=== PATIENT | female | born 1945 | race Caucasian/White ===

== ENCOUNTER → 2020-03-08 15:04 | Outpatient (CLI) | payer MEDICARE, SELFPAY ==
[2020-03-09 10:51] LABS: COVID19 Sendout Not Detected (Not Detect)
== END ==
PROVIDERS: Visit Provider Registered Nurse
DX: Z01.812 Encounter for preprocedural laboratory examination (principal)
CPT/HCPCS: 87635

== ENCOUNTER 2020-03-12 09:55 | Observation (INO) | payer MEDICARE, SELFPAY ==
[2020-03-10 09:59] VITALS: BMI 26.1
[2020-03-11] VITALS (15 sets, daily range): BP systolic 76–134; BP diastolic 35–73; PULSE 65–75; RESP 12–19; TEMP 36.1–37; O2SAT 95–99; BMI 25.8
--- NOTE | 2020-03-11 | DI.RAD.S_ITS ---
PROCEDURE: XR PELVIS 1-2V INDICATIONS: RT TOTAL HIP TECHNIQUE: 1 view of the lower pelvis acquired. COMPARISON: None. FINDINGS: Bones: Patient is status post right hip arthroplasty, with hardware components in expected positions. The hip joint appears congruent. The visualized bony structures appear intact. Soft tissues: Overlying postoperative changes are noted. No suspicious soft tissue densities. IMPRESSION: Right total hip arthroplasty. Normal alignment established. Dictated by: Arpit Ashraf M.D. on 03/11/2020 at 14:35 Approved by: Arpit Ashraf M.D. on 03/11/2020 at 14:43
[2020-03-11] MEDS: LACTATED RINGERS 1,000 ML 42 ML IV ×2 (10:07→13:04)
[2020-03-11] MEDS: CEFAZOLIN 1 GM/50 ML FROZ.PIGGY IV (11:50)
[2020-03-11] MEDS: TRANEXAMIC ACID 1,000 MG VIAL 1000 MG IV ×2 (12:15→13:00)
--- NOTE | 2020-03-11 12:23 | SUR.OPER ---
Lateral on padded OR bed. Gel axillary roll. Arms secured on padded armboard with pillow supporting top arm. Padded hip positioner braces x4 - anterior and posterior chest and pelvis. Additional gel pad used anterior pelvis. Gel pad under bottom leg from knee to foot and secured with tape over sheet.
[2020-03-11] MEDS: ROPIVACAINE 0.5% PF 5 MG/ML 20ML VIAL 60 ML INJ (12:27)
[2020-03-11] MEDS: KETOROLAC 30 MG/ML VIAL INJ (12:31)
[2020-03-11] MEDS: MORPHINE 4 MG/ML INJ INJ (12:32)
--- NOTE | 2020-03-11 13:39 | P.OP_ITS ---
Operative Date/Time/Diagnoses Date of procedure: 03/11/20 Time of procedure: 13:39 Pre-op diagnosis: Right hip degenerative joint disease Post-op diagnosis: same Procedure & Clinicians Procedure: Right total hip arthroplasty (CPT code 82547 with clerical administrative assistant) Same procedure as scheduled: Yes Indications: Patient is an 74-year-old female with severe right hip DJD. The patient has pain with activities and at rest, limited ambulation and activity tolerance, difficulties with ADLs, and failure of conservative treatment. We have discussed the nature of condition, treatment options, risks and benefits, and patient elects to proceed with total hip arthroplasty and gives informed consent. Surgeon: Juan M Granger Beer Coil Cleaner: Roro Peterson Anesthesia Type: General and Spinal Operative Notes Closure Type: primary Specimen(s): none sent Prosthetic devices, grafts, tissues, transplants, or devices: Acetabulum: Kat and Nephew R3 acetabular component size 50 mm Femoral component: Kat [employer] Nephew Anthology stem size 8 with standard offset Femoral head: 32 mm + 0 cobalt chrome Estimated Blood Loss (mL): 200 Blood products transfused: none Procedure in detail: After satisfaction induction of anesthetic, and administration of IV antibiotics, the patient was positioned in the lateral decubitus position with all bony prominences well padded and pelvic position secured using a hip conservation engineer positioning device. Right hip and lower extremity prepped and draped in the usual sterile fashion, 1st dose of intravenous tranexamic acid was administered, then a longitudinal incision was created centered over the greater trochanter and carried sharply through the skin and subcutaneous tissues down to the fascia jerri which was divided longitudinally and retracted with a Charnley retractor. External rotators visualize, cut, tagged, and retracted posteriorly, then the capsule was cut in a T-type fashion with the corners tagged and retracted. Hip was dislocated and femoral neck cut made according to preoperative templating. Acetabular retractors then placed, and the acetabular labrum and osteophytes were excised. The acetabulum was then sequentially reamed to 49 mm with an excellent circumferential ream and fit with the trial. The trial component was removed and a permanent size 50 mm Kat and Nephew R3 acetabular component was selected, positioned, and impacted with satisfactory position and fixation achieved. Permanent liner was then inserted with the elevated lip directed posteriorly. Soft tissue then removed off the lateral femoral neck in the lateral neck was entered using a box osteotome. T- handled reamers placed down the canal followed by sequential broaching to 8 with the final broach left in place for trial reduction which demonstrated excellent leg length, range of motion, and stability characteristics with a 32 mm +0 trial ball. The trial and broach were removed, and a permanent size 8 Kat and Nephew Anthology stem was selected and inserted with excellent position and fixation achieved. Another trial reduction yielded the above characteristics so the trial ball was exchanged for a permanent 32 mm +0 cobalt chrome ball. The hip was irrigated and reduced and excellent leg length range of motion and stability characteristics were achieved and maintained. Periarticular tissues were infiltrated with ropivacaine, morphine, and Toradol. The hip was copiously irrigated, and the capsule repaired with #2 Ethibond, and the piriformis was repaired back to the greater trochanter with the same. Fascia jerri closed with interrupted #1 Ethibond sutures, and the subcutaneous tissues were closed in 2 layers of 0 Vicryl and 2 0 Vicryl. Skin was closed with brendan and sterile dressings applied. Second dose of tranexamic acid was administered intravenously, and the anesthetic was terminated. Complications: none Post-operative Condition: stable Disposition: PACU Plan for aftercare: Patient will be admitted to the acute care [place], and anticipate discharge on afternoon of surgery or postop day 1 with follow-up in office in 10-14 days. Outpatient physical therapy will be arranged and patient will continue to observe posterior hip precautions. Patient will continue use of postoperative Lovenox for 10 days postop.
--- NOTE | 2020-03-11 14:07 | SUR.PHASEI ---
Patient A/O x 4. Spinal resolving. Still unable to move LE. PP +. Drsg CDI. Will cont to monitor.
--- NOTE | 2020-03-11 14:15 | PC.NURSE ---
Admitting note Pt is A/o x4, from PACU. Denies pain, block prior to R hip surgery effective. Sensation at L3 level. PP+, weak. Unable to wiggle R foot, but slowly getting more sensation. RA, 99%, no c/o pain or nausea. Snack at bedside. Call light in reach. Update to Jamia, Per Pt request.
[2020-03-11] MEDS: WARFARIN 5 MG TABLET PO (17:17)
--- NOTE | 2020-03-11 17:36 | PT.IIE ---
Current Diagnoses Unilateral primary osteoarthritis, right hip (03/11/20) Trochanteric bursitis, right hip (03/11/20) Surgery Performed Operation Date: 03/11/20 11:45 Actual Procedures p Total Hip Arthroplasty(Right) - Juan M Granger MD Surgical History (Last Reviewed 03/11/20 @ 11:52 by Juan M Granger MD) History of hysterectomy (Acute) Hx of bilateral cataract extraction (Acute) Hx of tonsillectomy (Acute) S/P right unicompartmental knee replacement (Acute ~2016) Medical History (Last Reviewed 03/11/20 @ 11:52 by Juan M Granger MD) Asthma (Acute) Depression (Acute) DVT (deep venous thrombosis) (Acute 01/2005) Easy bruisability (Acute) Femur fracture, right (Acute 1975) Hearing impaired (Acute) Hypothyroidism (Acute) Osteoarthritis (Acute) Sciatica (Acute) Physical Therapy Inpatient Evaluation/Re-Eval M1 PT/OT-IP Prior Functional Status Start: 03/11/20 15:21 Freq: NEEDED Status: Active Protocol: Document 03/11/20 17:15 AW (Rec: 03/11/20 17:36 AW [id number]) Medical Review Prior Functional Status Medical History Reviewed Yes Diet/Fluid Consistency Regular Communication WNL Mobility and Gait Pt reports independent ambulation but does endorse occasional use of SPC. She states she used the cane <10% of the time. In recent weeks, she has been walking 1-2 miles daily. Activities of Daily Living and IADL's Independent. Social History Household Members none Living Arrangements House Number of Floors (Floors) One Floor Number of Stairs To Enter/Railing? Ramped entry to front door Home Environment Standard Height Toilet,Walk in Shower,Ramp Home Equipment Front Wheel Walker,Straight Cane,Raised Toilet Seat Without Armrests,Hand Held Shower,Leg Fairground Operator,Occupational Health Nurse Supervisor,Grab Bars In Shower Employment Status Retired Additional Social History Comment Pt's ~1 year ago. She currently lives alone. She has arranged for friends to stay with her over the next week. M2 PT-IP Current Condition Start: 03/11/20 15:21 Freq: NEEDED Status: Active Protocol: Document 03/11/20 17:15 AW (Rec: 03/11/20 17:36 AW [email or web address]) Physical Therapy Current Condition Current Condition Evaluation Date 03/11/20 Treatment Diagnosis s/p R IVANNA with posterior approach; difficulty in walking Precautions Posterior Hip Precautions No Hip Flexion > 90 degrees,No Hip Internal Rotation,No Hip Adduction Weight Bearing Status Weight Bearing Status Weight Bear as Tolerated M3 PT-IP Subjective Start: 03/11/20 15:21 Freq: NEEDED Status: Active Protocol: Document 03/11/20 17:15 AW (Rec: 03/11/20 17:36 AW [email or web address]) Subjective Physical Therapy Visit Type Type Initial Evaluation Visit Start Time 16:02 Visit Stop Time 16:40 Total Visit Minutes 38 Physical Therapy Visit Comments Patient Comments Pt willing to participate with PT Patient Goals Pt states she is going home today. Therapy Pain Assessment Pain When Pain Assessed At Rest Pain Present Pain Present Denied Pain M4 PT-IP Mobility and Gait Start: 03/11/20 15:21 Freq: NEEDED Status: Active Protocol: Document 03/11/20 17:15 AW (Rec: 03/11/20 17:36 AW [email or web address]) PT-Bed Mobility Assessment Supine to Sit Supine to Sit Contact Guard Assistance Sit to Supine Sit to Supine Maximum Assistance,1 Person Assistance Scooting Scooting to Edge of Bed Standby Assistance Scooting Up and Down in Bed Minimal Assistance PT-Transfer Assessment Sit to and From Stand Sit to and from Stand Minimal Assistance,1 Person Assistance,Use of Upper Extremities Equipment Transfer Assistive Device Gait Belt,Front Wheeled Walker Orthotic/Prosthetic Devices or Brace: No Comments Mobility Comments Pt sitting up in bed upon PT arrival, alert and ready to work with therapy. BP supine was 113/81. Pt required extra time and CGA to complete supine to sit with HOB elevated ~20 degrees. She was able to sit EOB with and without UE support. Pt then completed sit to stand with FWW min A x 1 at which point she began to complain of lightheadedness. BP in immediate standing was 145/79. She was able to complete weight shifting side to side and began to take steps forward with FWW CGA. Two feet away from the bed, she began to slump. This PT quickly assisted the pt back to sitting on the bed where she required encouragement to keep her eyes open and to attend to sitting upright. RN responded to the call light and assisted the pt back to supine. BP upon return to supine was 90/35. Pt was responsive and verbal immediately. BP was 107/63 after three minutes. She was left with RN and RT attending. Gait Assessment Comments Gait Comments Unable at this time. See mobility comments. Stair Climbing Assessment Comments Stair Climbing Comments Not assessed. No stairs at home. PT-Balance Assessment Sitting Balance and Reactions Static Sitting Balance Ability Good Dynamic Sitting Balance Ability Good M5 PT-IP Objective Assessments Start: 03/11/20 15:21 Freq: NEEDED Status: Active Protocol: Document 03/11/20 17:15 AW (Rec: 03/11/20 17:36 AW [id number]) Orientation Orientation/Cognition Level of Alertness Lethargic Orientation Name,Day of Week,Place, Situation Language Function Ability Hard of Hearing Safety Awareness Understands Safety Issues Memory Description No Deficits Noted Comments Pt was alert and oriented at start of session. She became sleepy and dizzy during mobility but continued to respond appropriately to orientation questions. Gross Range of Motion Lower Extremity ROM Assessment Right Impaired Strength Lower Extremity Strength Assessment Right Impaired Comments Strength Comments L LE grossly 4+/5 Coordination Assessment Gross Coordination Gross Coordination WNL Sensation Assessment Sensation Gross Sensation Right LE Impaired,Left LE Impaired Light Touch Impaired Sensation Description Numbness Muscle Tone Muscle Tone WNL Yes M6 PT-IP Treatment Start: 03/11/20 15:21 Freq: NEEDED Status: Active Protocol: Document 03/11/20 17:15 AW (Rec: 03/11/20 17:36 AW [email or web address]) Physical Therapy Treatment Exercises Exercises Ankle Pumps,Gluteal Sets,Quad Sets,Heel Slides,Supine Hip Abduction Education Education Provided Precautions,Weight Bearing Status,Post-Op Packet,Safety Other Treatments Other Treatment Performed Provided education on role of PT, plan of care, weightbearing status, posterior hip precautions, and safe use of FWW M7 PT-IP Assessment and Plan Start: 03/11/20 15:21 Freq: NEEDED Status: Active Protocol: Document 03/11/20 17:15 AW (Rec: 03/11/20 17:36 AW [email or web address]) PT Summary Assessment and Plan Potential Rehabilitation Potential Excellent Status of Condition at Evaluation Evolving Summary Impairments Pain,ROM,Strength,Balance, Sensation,Bed Mobility, Transfers,Gait,Activity Tolerance Assessment Summary Melissa is an active 74 yo woman seen for PT evaluation on POD0 following R IVANNA with posterior approach. She is largely independent with ambulation but does endorse use of SPC <10% of the time prior to surgery. Evaluation was limited due to orthostatic hypotension with attempted mobility. Based on pt's prior level of function and activity , PT anticipates she will meet the functional goals of this plan of care and be safe to discharge home with supportive friends and outpatient PT once medically cleared. PT will continue to assess and refine discharge recommendation depending on progress. Goals Bed Mobility Goal Standby Assistance Transfer Goal Standby Assistance,Front Wheeled Walker Gait Goal Standby Assistance,Front Wheel Walker Gait Distance 200 Days to Meet Goals 3 Frequency of Treatment Frequency Of Treatment Twice a Day Treatment Plan Physical Therapy Treatment Plan Bed Mobility Training,Transfer Training,Gait Training, Therapeutic Exercise,Balance Retraining,Post Op Education, Discharge Planning,Hot or Cold Pack Other Recommendations and Next Treatment assess transfers and gait with Focus FWW; review ther ex; reinforce hip precautions Recommendations To Nursing Amount of Assist Needed 1 Person Assist Discharge Recommendations PT Discharge Recommendations Home with Assistance, Outpatient PT Other Discharge Recommendations depending on progress Transportation Needs at Discharge Private Vehicle
[2020-03-11] MEDS: LACTATED RINGERS 1,000 ML 125 ML IV (19:09)
[2020-03-11] MEDS: CEFAZOLIN 2 GM/100 ML FROZ.PIGGY IV (19:40)
[2020-03-11] MEDS: SODIUM CHLORIDE 0.9% 1,000 ML 1000 ML IV (21:55)
[2020-03-11] MEDS: DOCUSATE 100 MG CAPSULE PO (22:31)
[2020-03-11] MEDS: ACETAMINOPHEN 325 MG TABLET 650 MG PO (22:31)
[2020-03-12 00:26] VITALS: BP 101/57; PULSE 80; RESP 19; TEMP 36.2; O2SAT 99
--- NOTE | 2020-03-12 02:08 | PC.NURSE ---
Addendum entered by Ladonna Aguiar R.N. 03/12/20 06:43: 0400 Pt able to void on bedpan 100 ml. Continues to deny need for pain meds. Drsg R hip CDI. CMS +. Original Note: 0000 Pt awake and cooperative. Denies nausea and pain. States she only has mild pain when lifting RLE off of bed. Good CMS.R hip drsg CDI. Pt states only nausea was with standing and BP was low. Pt states that at baseline she is incontinent and always wears briefs. Encouraged pt to call with need for brief change. Pt agreeable. Pt able to C,DB with improvement in O2 sats. Encouraged ankle waving and calf pumping. Pt states that she read her book on Total Hip Replacement and she has been doing ankle waves and calf pumping. SCDs in place. SBP improved to to 101/57. Pt encouraged to call for any needs or questions. Pt agreeable.
[2020-03-12] MEDS: CEFAZOLIN 2 GM/100 ML FROZ.PIGGY IV (03:42)
[2020-03-12] MEDS: LACTATED RINGERS 1,000 ML 125 ML IV (03:48)
[2020-03-12 04:00] VITALS: BP 100/55; PULSE 73; RESP 18; TEMP 36.2; O2SAT 98
[2020-03-12 05:04] LABS: Hematocrit 33.2 % (36-46); Hemoglobin 11.2 g/dL (12.0-16.0)
[2020-03-12 07:49] VITALS: BP 109/58; PULSE 67; RESP 16; TEMP 36.4; O2SAT 97
--- NOTE | 2020-03-12 08:29 | CM.DANOTE ---
Addendum entered by Domonique Mattson LPN 03/12/20 08:59: Clarification: RTHA/Posterior approach: confirmed. Pt is x one year: will update ACG so that EMR can be updated. Addendum entered by Domonique Mattson LPN 03/12/20 08:49: DCP: assessment: case received, EMR reviewed. DC to home order noted, in place since pt left PACU yesterday afternoon. Checked in with PT Sudheer who will be seeing pt for her initial PT eval today. Met now with pt and introduced self and role. Pt is a 74 year old female who admitted yesterday for a planned R IVANNA/anterior approach. Surgeon: Dr. Granger Payer: Medicare and [facility] PCP: Amaury Nunez Pt confirms her home plan and has my helpful and calm friends lined up for assistance. She will have someone staying with her overnight for 2 nights. She does say she does not feel able to go home until she can get up and go to the bathroom by herself. She does reiterate that she very much hopes to be able to go home today if possible. She has not seen a rounding surgeon yet today. Pt says she had difficulty with low blood pressure yesterday and I think that is why I did not get to see PT. Original Note: Discharge Planning/Care Management Advanced directive, confirm from FAMILY Start: 03/11/20 15:13 Freq: Q24H Status: Active Protocol: Document 03/11/20 15:13 CW (Rec: 03/11/20 17:26 CW [email or web address]) Advance Directive, confirm on record Time 17:26 Person contacted patient Copy received No Copy received No Advanced directive available on record No CM Discharge Assessment Start: 03/12/20 08:27 Freq: Status: Active Protocol: Document 03/12/20 08:28 ITV (Rec: 03/12/20 08:29 ITV [id number]) Discharge Planning Assessment Advance Directives? Yes Advance Directives on File No History Provided By Medical Record Prior Living Arrangements House Household Members none Review Status In Process Pre-Anesthesia Assessment Start: 03/10/20 09:59 Freq: Status: Complete Protocol: Document 03/10/20 09:59 CAB (Rec: 03/10/20 10:37 CAB [id number]) Pre-Anesthesia Assessment Patient Information Reviewed Via Phone Assessment Assessment Completed With Patient Comment Labs done per pt-not in system -COVID screen @ [facility] 03/08/20-not detected Primary Care Provider Amaury Nunez Seen Specialist in Last 12 Months Yes Specialist Seen Orthopedist Primary Language Angolan Clay Shop Supervisor Required No Height 165.1 cm Weight 71.214 kg Body Mass Index (BMI) 26.1 Hearing Ability Hard of Hearing,Use of Hearing Aid Visual Assist Glasses Dentition Type Teeth, Natural Present,Dental Implants Barriers to Learning None Other Aids No Hx Anesthesia Reactions No Hx Family Anesthesia Reaction No Hx Malignant Hyperthermia No Hx Blood Transfusions No Anesthesia Review Requested No Business Office Technician No alcohol intake current alcohol intake frequency 0-2 drinks per day Smoking Status Former smoker how long ago did patient quit smoking Quit smoking in college x 1 year Substance Use Type other Comment CBD oil to help with sleep Pain Present Pain Reported Musculoskeletal Symptoms Abnormal Gait,Difficulty Walking,Joint Pain,Radiating Pain into Limb History of Falling (Recent or History of No ) Patient is completely paralyzed or No completely immobile Prosthesis or Orthotic Device Cane Mental Status Oriented to own ability Is patient on oxygen? No Does patient have CASILLAS/SOB No Hx Sleep Apnea No Currently Taking a Beta Robb No Can You Climb a Flight of Stairs Without Yes SOB Hx Chest Pain No Hx SOB No Hx Syncope or Dizziness No Anti-Coagulant Therapy Yes: Warfarin-Advised to hold 03/06 PCP Has a Transportation Aid No Cardiac Testing No Hx Pacemaker/ICD No Pacemaker Rep Required? No Cardiac Clearance Received Not Applicable Diet Type At Home Regular dysphagia No Bladder Pattern Incontinent Urinary Catheter Present No Hx Urinary Self Catheterization No Diabetes No Patient No Lactating No Hx Drug Resistant Organism No Presence of External or Internal Medical Yes: Bilateral eye lens Devices Have you had any close contact with No someone diagnosed with COVID-19? Evaluation/Screening for possible COVID- Yes 19 infection completed? Marital Status - passed 03/12/19 Lives With none Prior Living Arrangements House Support System Friend(s) Does the Patient Have Assistance After Yes: Neighbors, friends will Surgery stay w/pt to assist @ DC Patient Discharge Plan Description Return Home Comment Pt plans to go home same day Feels Safe in Current Environment Yes Been Physically Hurt or Threatened By a No Person in Current Environment Do you have thoughts of harming yourself None or others? Are you currently considering suicide? No Do you have a plan to hurt yourself or No Plan others? Do You Have Any Spiritual Beliefs That No May Affect Your HC Choices? Do You Have Any Cultural Practices That No May Affect Your HC Choices? Comment [employer]ism Health Care Proxy/Next of Kin Jamia (friend) Health Care Proxy Emergency Contact Name Nelson (sister) Emergency Contact Advance Directives? Yes Advance Directives on File No Requested Patient Bring Advanced Yes Directives DOS Power of Operations Vocational Instructor Yes Power of Operations Vocational Instructor Name Nelson () Power of Operations Vocational Instructor PAC Instructions Do not shave/clip surgical site,Durable medical equipment ,Medications to take/avoid, Nasal antibiotic,No ETOH/ petroleum product on skin DOS, NPO,Post-op transportation,Pre -surgical wash,Sensory aids, Sturdy shoes/comfortable clothes
[2020-03-12] MEDS: ACETAMINOPHEN 325 MG TABLET 650 MG PO (08:35)
[2020-03-12] MEDS: SODIUM CHLORIDE 0.9% FLUSH 10 ML IV (08:36)
[2020-03-12] MEDS: DOCUSATE 100 MG CAPSULE PO (08:36)
[2020-03-12] MEDS: MONTELUKAST 10 MG TABLET PO (08:36)
--- NOTE | 2020-03-12 11:29 | PT.IPTN ---
Current Diagnoses Unilateral primary osteoarthritis, right hip (03/12/20) Trochanteric bursitis, right hip (03/12/20) Surgery Performed Operation Date: 03/11/20 11:45 Actual Procedures p Total Hip Arthroplasty(Right) - Juan M Granger MD Physical Therapy Treatment Note M2 PT-IP Current Condition Start: 03/11/20 15:21 Freq: NEEDED Status: Active Protocol: Document 03/11/20 17:15 AW (Rec: 03/11/20 17:36 AW [email or web address]) Physical Therapy Current Condition Current Condition Evaluation Date 03/11/20 Treatment Diagnosis s/p R IVANNA with posterior approach; difficulty in walking Precautions Posterior Hip Precautions No Hip Flexion > 90 degrees,No Hip Internal Rotation,No Hip Adduction Weight Bearing Status Weight Bearing Status Weight Bear as Tolerated M3 PT-IP Subjective Start: 03/11/20 15:21 Freq: NEEDED Status: Active Protocol: Document 03/12/20 09:20 HH (Rec: 03/12/20 11:29 HH [email or web address]) Subjective Physical Therapy Visit Type Type Treatment Note Visit Start Time 09:20 Visit Stop Time 09:50 Total Visit Minutes 30 Number of SHOE STITCHER ODD Visits 0 Physical Therapy Visit Comments Patient Comments Im feeling a lot better today and i think im ready to go home. Therapy Pain Assessment Pain When Pain Assessed During Mobility Pain Present Pain Present Pain Reported Location Right Hip Intensity 2 Scale Used Numeric (1 - 10) Description Aching Pain Management Techniques Timing of Activity with Medications M4 PT-IP Mobility and Gait Start: 03/11/20 15:21 Freq: NEEDED Status: Active Protocol: Document 03/12/20 09:20 HH (Rec: 03/12/20 11:29 HH [email or web address]) PT-Transfer Assessment Sit to and From Stand Sit to and from Stand Standby Assistance Equipment Transfer Assistive Device Bed Rail,Front Wheeled Walker Orthotic/Prosthetic Devices or Brace: No Transfers Transfer Destination Chair Transfer Technique with FWW Transfer Ability Level of Assist Standby Assistance Comments Mobility Comments Pt was in chair after using bathroom with CONTRERAS CUADRA. BP 94/57 HR 78 (pt denied any discomfort) Pt sitting comfortably with no c/o. She agreed to mobilize with PT. She completed sit to stand from low chair by pushing off from B armrests slowly and transitioned to FWW with a staggered stance SBA. She then amb to sink counter for self care who was able to stand unsupportedly but with a anterior trunk lean. She then proceed to amb in the hallway with SBA who presents with a rotated R pelvis and extended RLE. Pt initially amb with step to pattern slowly then improved to semi step over pattern, along with improved upright posture. Educated pt to facilitate heel strike on RLE and avoild early heel rise to improve hip extension. Pt overall amb 220 ft in total with SBA and able to return to room chair after with a safe transfer by using chair armrest and staggered stance. Pt rested in chair comfortably after with BP 91/43 HR 91. Pt overall demonstrated good understanding of post op precautions and safe transfer techniques. Gait Assessment Gait Gait Assistance Required: Standby Assistance Distance (Feet) 220 Able to Maintain Weight Bearing Status Yes During Gait Assistive Devices Assistive Device Gait Belt,Front Wheeled Walker Orthotic/Prosthetic Devices or Brace: No Gait Deviations General Gait Pattern Antalgic,Decreased Stride Length,Decreased Feet Clearance,Flexed Trunk,Step-to Gait Factors Limiting Gait Function Factors Limiting Gait Function Decreased Activity Tolerance, Decreased Strength,Limited Range of Motion,Pain,Poor Balance Comments Gait Comments see mobility comments PT-Balance Assessment Sitting Balance and Reactions Static Sitting Balance Ability Normal Dynamic Sitting Balance Ability Normal Standing Balance and Reactions Static Standing Balance Ability Normal Dynamic Standing Balance Ability Good Device Used with FWW M5 PT-IP Objective Assessments Start: 03/11/20 15:21 Freq: NEEDED Status: Active Protocol: Document 03/11/20 17:15 AW (Rec: 03/11/20 17:36 AW [id number]) Orientation Orientation/Cognition Level of Alertness Lethargic Orientation Name,Day of Week,Place, Situation Language Function Ability Hard of Hearing Safety Awareness Understands Safety Issues Memory Description No Deficits Noted Comments Pt was alert and oriented at start of session. She became sleepy and dizzy during mobility but continued to respond appropriately to orientation questions. Gross Range of Motion Lower Extremity ROM Assessment Right Impaired Strength Lower Extremity Strength Assessment Right Impaired Comments Strength Comments L LE grossly 4+/5 Coordination Assessment Gross Coordination Gross Coordination WNL Sensation Assessment Sensation Gross Sensation Right LE Impaired,Left LE Impaired Light Touch Impaired Sensation Description Numbness Muscle Tone Muscle Tone WNL Yes M6 PT-IP Treatment Start: 03/11/20 15:21 Freq: NEEDED Status: Active Protocol: Document 03/11/20 17:15 AW (Rec: 03/11/20 17:36 AW [email or web address]) Physical Therapy Treatment Exercises Exercises Ankle Pumps,Gluteal Sets,Quad Sets,Heel Slides,Supine Hip Abduction Education Education Provided Precautions,Weight Bearing Status,Post-Op Packet,Safety Other Treatments Other Treatment Performed Provided education on role of PT, plan of care, weightbearing status, posterior hip precautions, and safe use of FWW M7 PT-IP Assessment and Plan Start: 03/11/20 15:21 Freq: NEEDED Status: Active Protocol: Document 03/12/20 09:20 HH (Rec: 03/12/20 11:29 HH [email or web address]) PT Summary Assessment and Plan Summary Impairments Pain,ROM,Strength,Balance, Transfers,Gait,Activity Tolerance Progress Towards Goals Safe For Discharge Assessment Summary Pt did very well today who was able to amb, transfer and perform self care with SBA and FWW. She also has good understanding of post op precautions and safe transfer techniques. Pt will have friends to stay over to assist until Sunday and will participate outpatient PT starting from next sunday. She is currently safe to d/c. Frequency of Treatment Frequency Of Treatment Discharge Recommendations To Nursing Amount of Assist Needed Standby Assistance Discharge Recommendations PT Discharge Recommendations Home with Assistance, Outpatient PT Transportation Needs at Discharge Private Vehicle
--- NOTE | 2020-03-12 11:37 | PC.NURSE ---
Addendum entered by Shakeel Damon R.N. 03/12/20 11:54: Pt left via w/c and was escorted to POV by [employer]. Pt was in no distress at time of discharge and had all belongings with her. Original Note: Pt to d/c home per MD order after PT eval/tx. Pt able to work with PT and ambulate in the hallway. Tolerated well with very minimal lightheadedness reported. Pain well controlled with tylenol scheduled. Removed PIV. Reviewed d/c packet, hip precautions, post op care, f/u care, s/s of wound infx, medication regimen, pain med regimen. Pt verbalized understanding of discharge teaching and states she has no questions at this time. Pt states her friend will be here to pick her up around 1200.
== END 2020-03-12 11:50 | disposition home or self-care (01) ==
LOC: OR 11:12 → AC 11:12
PROVIDERS: Admitting Provider Orthopaedic Surgery; Referring Provider Orthopaedic Surgery; Visit Provider Orthopaedic Surgery
PROC: 0SR90JZ Replacement of Right Hip Joint with Synthetic Substitute, Open Approach (ICD-10-PCS; CPT 27130; principal; 2020-03-11 11:45)
DX: M16.11 Unilateral primary osteoarthritis, right hip (principal); M70.61 Trochanteric bursitis, right hip; J45.909 Unspecified asthma, uncomplicated; Z86.718 Personal history of other venous thrombosis and embolism; Z79.01 Long term (current) use of anticoagulants
CPT/HCPCS: 27130; 36415; 72170; 85014; 85018; 94762; 97110; 97116; 97161; 97530; C1776; G0378; J0690; J1100; J1885; J2250; J2270; J2274; J2405; J2704; J3010